=== PATIENT | male | born 1985 | race Caucasian/White ===

== ENCOUNTER → 2021-05-17 | Outpatient (REF) ==
--- NOTE | 2021-05-17 14:03 | REP ---
INDICATION: PAIN. COMPARISON: None TECHNIQUE: Three views FINDINGS: Vertebral body height and alignment is within normal limits. The disc spaces are symmetric and well maintained throughout. The pedicles are intact bilaterally. There are multiple curvilinear metallic radiodensities along the left paraspinal region and superimposed over the left iliac wing. IMPRESSION: As above. <Electronically signed by Som Oneill > 05/17/21 [id number]
--- NOTE | 2021-05-17 14:05 | REP ---
INDICATION: PAIN COMPARISON: None TECHNIQUE: Five views FINDINGS: The compartments are symmetric and well maintained. There is no fracture, dislocation, or subluxation. IMPRESSION: Within normal limits <Electronically signed by Som Oneill > 05/17/21 [id number]
== END ==
LOC: M PLAIMG 13:20
PROVIDERS: ATTEND Internal Medicine
DX: M54.9 Dorsalgia, unspecified (principal)